=== PATIENT | female | born 1990 | race American Indian/Alaskan Native ===

== ENCOUNTER 2017-03-21 18:29 | Emergency (ER) | payer SELFPAY ==
[2017-03-21 18:53] VITALS: BP 129/79
--- NOTE | 2017-03-21 19:02 | Emergency Department Report ---
Chief Complaint: Psych Stated Complaint: DEPRESSED /MIGRAINES/ SUICIDAL THOUGHTS Time Seen by Provider: 03/21/17 18:55 - HPI History of Present Illness: depressed si jump out of car voices tell her to run or jump from car no hx of same etoh cig denies drugs lmp 3 w ago no fam hx psyciatric illness no meds - Exam Vital Signs: Vital Signs 03/21/17 18:49 Temperature 97.9 F Pulse Rate 89 Respiratory 18 Rate Blood Pressure 129/79 O2 Sat by Pulse 100 Oximetry MSE screening note: Focused history and physical exam performed. Due to findings the following was ordered: ED Disposition for MSE Condition: Stable
[2017-03-21 19:27] LABS: Basophils % (Auto) 0.6 % (0.0-1.8); Eosinophils % (Auto) 3.3 % (0.0-4.3); Hematocrit 39.7 % (30.3-42.9); Hemoglobin 13.4 gm/dl (10.1-14.3); Mean Corpuscular HGB Conc 34 % (30-34); Mean Corpuscular Hemoglobin 32 pg (28-32); Mean Corpuscular Volume 95 fl (79-97); Platelet Count 281 K/mm3 (140-440); Red Blood Count 4.17 M/mm3 (3.65-5.03); Red Cell Distribution Width 13.3 % (13.2-15.2); White Blood Count 8.1 K/mm3 (4.5-11.0)
[2017-03-21 19:48] LABS: Alanine Aminotransferase 10 units/L (7-56); Albumin 4.2 g/dL (3.9-5); Albumin/Globulin Ratio 1.6 %; Alkaline Phosphatase 84 units/L (35-129); Anion Gap 17 mmol/L; Blood Urea Nitrogen 9 mg/dL (7-17); Calcium 9.5 mg/dL (8.4-10.2); Carbon Dioxide 28 mmol/L (22-30); Chloride 99.6 mmol/L (98-107); Glucose 97 mg/dL (65-100); Potassium 4.5 mmol/L (3.6-5.0); Sodium 140 mmol/L (137-145); Total Protein 6.8 g/dL (6.3-8.2)
--- NOTE | 2017-03-25 00:54 | ED Elopement Review ---
ED Pt Elopement review - Results review Lab results: Laboratory Tests 03/21/17 03/21/17 03/21/17 19:12 19:12 19:12 WBC 8.1 RBC 4.17 Hgb 13.4 Hct 39.7 MCV 95 MCH 32 MCHC 34 RDW 13.3 Plt Count 281 Lymph % (Auto) 30.7 [place] % (Auto) 4.9 Eos % (Auto) 3.3 Baso % (Auto) 0.6 Lymph # 2.5 [place] # 0.4 Eos # 0.3 Baso # 0.0 Seg Neutrophils % 60.5 Seg Neutrophils # 4.9 Sodium 140 Potassium 4.5 Chloride 99.6 Carbon Dioxide 28 Anion Gap 17 BUN 9 Creatinine 0.6 L Estimated GFR > 60 BUN/Creatinine Ratio 15.00 Glucose 97 Calcium 9.5 Total Bilirubin 0.30 AST 17 ALT 10 Alkaline Phosphatase 84 Total Protein 6.8 Albumin 4.2 Albumin/Globulin Ratio 1.6 TSH Salicylates Acetaminophen < 15.0 Plasma/Serum Alcohol 03/21/17 03/21/17 03/21/17 19:12 19:19 19:20 WBC RBC Hgb Hct MCV MCH MCHC RDW Plt Count Lymph % (Auto) [place] % (Auto) Eos % (Auto) Baso % (Auto) Lymph # [place] # Eos # Baso # Seg Neutrophils % Seg Neutrophils # Sodium Potassium Chloride Carbon Dioxide Anion Gap BUN Creatinine Estimated GFR BUN/Creatinine Ratio Glucose Calcium Total Bilirubin AST ALT Alkaline Phosphatase Total Protein Albumin Albumin/Globulin Ratio TSH 0.866 Salicylates < 0.3 L Acetaminophen Plasma/Serum Alcohol < 0.01 - Call Back decision Pt Call Back Decision: Call pt to return to ED [facility] (charge nurse Chan form the patient with suicidal ideation who has eloped. Charge nurse instructed to notify police)
== END 2017-03-22 00:40 | disposition left against medical advice (07) ==
LOC: ED 18:29
DX: F32.9 Major depressive disorder, single episode, unspecified (principal); Z53.21 Procedure and treatment not carried out due to patient leaving prior to being seen by health care provider
CPT/HCPCS: 36415; 80053; 84443; 85025; G0480; 80320

== ENCOUNTER 2017-04-26 13:03 | Emergency (ER) | payer SELFPAY ==
[2017-04-26 13:09] VITALS: BP 157/92
[2017-04-26] MEDS ORDERED: DUONEB 0.5 MG-3 MG/3 ML SOLN IH ONE ×2 (13:09→15:28)
[2017-04-26 13:37] LABS: Hematocrit 41.1 % (30.3-42.9); Hemoglobin 13.9 gm/dl (10.1-14.3); Mean Corpuscular HGB Conc 34 % (30-34); Mean Corpuscular Hemoglobin 31 pg (28-32); Mean Corpuscular Volume 93 fl (79-97); Platelet Count 297 K/mm3 (140-440); Red Blood Count 4.42 M/mm3 (3.65-5.03); Red Cell Distribution Width 13.3 % (13.2-15.2); White Blood Count 10.3 K/mm3 (4.5-11.0)
[2017-04-26 13:47] LABS: Anion Gap 16 mmol/L; Blood Urea Nitrogen 5 mg/dL (7-17); Calcium 9.2 mg/dL (8.4-10.2); Carbon Dioxide 26 mmol/L (22-30); Glucose 96 mg/dL (65-100); Potassium 4.2 mmol/L (3.6-5.0); Sodium 139 mmol/L (137-145)
[2017-04-26 14:50] LABS: Bilirubin,Urine NEG (Negative); Blood,Urine NEG (Negative); Ketones,Urine NEG (Negative); Leukocyte Esterase,Urine TR (Negative); Mucus,Urine FEW /HPF; Nitrite,Urine NEG (Negative); Protein,Urine <15 mg/dL mg/dL (Negative); Urobilinogen,Urine < 2.0 mg/dL (<2.0)
[2017-04-26] MEDS ORDERED: DECADRON IV ONE (15:05)
[2017-04-26] MEDS ORDERED: DECADRON IM ONE (15:07)
--- NOTE | 2017-04-26 15:13 | Emergency Department Report ---
ED Asthma HPI - General Chief Complaint: Adult Asthma Stated Complaint: SOB,CHEST PAIN Source: patient Mode of arrival: Ambulatory Limitations: No Limitations - History of Present Illness Initial Comments: 26 year old presents to ED with productive cough, wheezing, SOB and chest pressure x2-3 days. patient states she has history of asthma and is out of her inhaler. Patient denies recent travel, recent surgeries, use of OCP's, hx of blood clots. patient is neurologically intact and in no acute distress. MD Complaint: "asthma attack", shortness of breath, wheezing -: Gradual Asthma History: history of frequent attac Severity: mild Context: recent URI, ran out of meds, medication non-compliance Associated Symptoms: productive cough. denies: fever, hemoptysis, leg edema, syncope - Related Data Previous Rx's Medication Instructions Recorded Last Taken Type ALBUTEROL Inhaler [ProAir HFA 1 puff IH QID PRN #1 inha 04/26/17 Unknown Rx Inhaler] Azithromycin [Zithromax] 250 mg PO DAILY #1 pack 04/26/17 Unknown Rx guaiFENesin DM [Robitussin Dm] 5 ml PO Q6HR #120 ml 04/26/17 Unknown Rx Allergies Allergy/AdvReac Type Severity Reaction Status Date / Time No Known Allergies Allergy Unverified 03/21/17 18:49 ED Review of Systems ROS: Stated complaint: SOB,CHEST PAIN Other details as noted in HPI Constitutional: denies: chills, fever Eyes: denies: eye pain, eye discharge, vision change ENT: denies: ear pain, throat pain Respiratory: cough (green mucus), SOB with exertion, SOB at rest, wheezing Cardiovascular: chest pain (chest pressure/tightness). denies: palpitations, edema, syncope Endocrine: no symptoms reported Gastrointestinal: denies: abdominal pain, nausea, diarrhea Genitourinary: denies: urgency, dysuria, discharge Musculoskeletal: denies: back pain, joint swelling, arthralgia Skin: denies: rash, lesions Neurological: denies: headache, weakness, paresthesias Psychiatric: denies: anxiety, depression Hematological/Lymphatic: denies: easy bleeding, easy bruising ED Past Medical Hx - Past Medical History Hx Hypertension: Yes Hx Asthma: Yes - Social History Smoking Status: Current Every Day Smoker Substance Use Type: Alcohol - Medications Home Medications: Home Medications Medication Instructions Recorded Confirmed Last Taken Type ALBUTEROL Inhaler [ProAir HFA 1 puff IH QID PRN #1 inha 04/26/17 Unknown Rx Inhaler] Azithromycin [Zithromax] 250 mg PO DAILY #1 pack 04/26/17 Unknown Rx guaiFENesin DM [Robitussin Dm] 5 ml PO Q6HR #120 ml 04/26/17 Unknown Rx ED Physical Exam - General Limitations: No Limitations General appearance: alert, in no apparent distress - Head Head exam: Present: atraumatic, normocephalic - Eye Eye exam: Present: normal appearance - ENT ENT exam: Present: normal exam, mucous membranes moist, TM's normal bilaterally - Neck Neck exam: Present: normal inspection, full ROM. Absent: tenderness - Respiratory Respiratory exam: Present: normal lung sounds bilaterally, wheezes (right lower lung wheezes). Absent: respiratory distress, stridor - Cardiovascular Cardiovascular Exam: Present: regular rate, normal rhythm. Absent: systolic murmur, diastolic murmur, rubs, gallop - GI/Abdominal GI/Abdominal exam: Present: soft, normal bowel sounds. Absent: distended, tenderness, guarding - Extremities Exam Extremities exam: Present: normal inspection, full ROM - Back Exam Back exam: Present: normal inspection, full ROM - Neurological Exam Neurological exam: Present: alert, oriented X3, normal gait - Psychiatric Psychiatric exam: Present: normal affect, normal mood - Skin Skin exam: Present: warm, dry, intact, normal color. Absent: rash ED Course Vital Signs 04/26/17 04/26/17 04/26/17 13:05 13:37 16:28 Temperature 98.3 F Pulse Rate 103 H 106 H Respiratory 20 18 20 Rate Blood Pressure 157/92 O2 Sat by Pulse 100 98 Oximetry 04/26/17 04/26/17 16:58 17:43 Temperature Pulse Rate 92 H Respiratory 18 18 Rate Blood Pressure O2 Sat by Pulse Oximetry ED Medical Decision Making - Lab Data Result diagrams: 04/26/17 13:17 04/26/17 13:17 Lab Results 04/26/17 04/26/17 04/26/17 Range/Units 13:17 13:17 14:37 WBC 10.3 (4.5-11.0) K/mm3 RBC 4.42 (3.65-5.03) M/mm3 Hgb 13.9 (10.1-14.3) gm/dl Hct 41.1 (30.3-42.9) % MCV 93 (79-97) fl MCH 31 (28-32) pg MCHC 34 (30-34) % RDW 13.3 (13.2-15.2) % Plt Count 297 (140-440) K/mm3 Sodium 139 (137-145) mmol/L Potassium 4.2 (3.6-5.0) mmol/L Chloride 101.0 (98-107) mmol/L Carbon Dioxide 26 (22-30) mmol/L Anion Gap 16 mmol/L BUN 5 L (7-17) mg/dL Creatinine 0.5 L (0.7-1.2) mg/dL Estimated GFR > 60 ml/min BUN/Creatinine Ratio 10.00 % Glucose 96 (65-100) mg/dL Calcium 9.2 (8.4-10.2) mg/dL Urine Color Yellow (Yellow) Urine Turbidity Clear (Clear) Urine pH 6.0 (5.0-7.0) Ur Specific [place] 1.020 (1.003-1.030) Urine Protein <15 mg/dl (Negative) mg/dL Urine Glucose (UA) Neg (Negative) mg/dL Urine Ketones Neg (Negative) mg/dL Urine Blood Neg (Negative) Urine Nitrite Neg (Negative) Urine Bilirubin Neg (Negative) Urine Urobilinogen < 2.0 (<2.0) mg/dL Ur Leukocyte Esterase Tr (Negative) Urine WBC (Auto) 2.0 (0.0-6.0) /HPF Urine RBC (Auto) 4.0 (0.0-6.0) /HPF U Epithel Cells (Auto) 2.0 (0-13.0) /HPF Urine Mucus Few /HPF Urine HCG, Qual Negative (Negative) - Radiology Data Radiology results: report reviewed XR chest no acute cardiopulmonary findings - Medical Decision Making 26 year old female presents to ED with asthma exacerbation. patient has had 2 breathing treatments, IM steroids, cough syrup, IM toradol and feels better. patient is in no acute distress. patient placed on PO antibiotics for 5 days, cough syrup and albuterol inhaler. patient is stable, neurologically intact and in no acute distress. patient understands to return to ED if symptoms worsen or new symptoms develop. Critical care attestation.: If time is entered above; I have spent that time in minutes in the direct care of this critically ill patient, excluding procedure time. ED Disposition Clinical Impression: Bronchitis with asthma, acute Disposition: DC-01 TO HOME OR SELFCARE Is pt being admited?: No Does the pt Need Aspirin: No Condition: Stable Instructions: Chronic Bronchitis (ED) Prescriptions: ALBUTEROL Inhaler [ProAir HFA Inhaler] 1 puff IH QID PRN #1 inha PRN Reason: Shortness Of Breath Azithromycin [Zithromax] 250 mg PO DAILY #1 pack guaiFENesin DM [Robitussin Dm] 5 ml PO Q6HR #120 ml Referrals: PRIMARY CARE, [Primary Care Provider] - 3-5 Days Forms: Work/School Release Form(ED)
--- NOTE | 2017-04-26 15:31 | XRay Report ---
Chest 2 views: History: Wheezing, productive cough. Findings: Normal cardiomediastinal silhouette. Trachea is midline. No consolidation, pneumothorax or pleural effusion. Impression: No acute cardiopulmonary findings.
[2017-04-26] MEDS: PHENERGAN/CODEINE 6.25-10 MG/5ML PO ONE ×2 (15:37→16:28)
[2017-04-26] MEDS ORDERED: TORADOL IM ONE (16:48)
== END 2017-04-26 17:47 | disposition home or self-care (01) ==
LOC: ED 13:03
DX: J20.9 Acute bronchitis, unspecified (principal); J45.909 Unspecified asthma, uncomplicated; I10 Essential (primary) hypertension; F17.200 Nicotine dependence, unspecified, uncomplicated
CPT/HCPCS: 36415; 71020; 80048; 81001; 81025; 85027; 93005; 93010; 94640; 96372; 99284; J1100; J1885

== ENCOUNTER 2018-01-09 12:22 | Emergency (ER) | payer SELFPAY ==
[2018-01-09 13:28] LABS: Basophils # (Auto) 0.1 K/mm3 (0.0-0.1); Basophils % (Auto) 1.6 % (0.0-1.8); Eosinophils # (Auto) 0.2 K/mm3 (0.0-0.4); Eosinophils % (Auto) 2.8 % (0.0-4.3); Hematocrit 41.8 % (30.3-42.9); Hemoglobin 14.2 gm/dl (10.1-14.3); Lymphocytes # (Auto) 1.8 K/mm3 (1.2-5.4); Lymphocytes % (Auto) 21.1 % (13.4-35.0); Mean Corpuscular HGB Conc 34 % (30-34); Mean Corpuscular Hemoglobin 34 pg (28-32); Mean Corpuscular Volume 98 fl (79-97); Monocytes # (Auto) 0.4 K/mm3 (0.0-0.8); Monocytes % (Auto) 4.2 % (0.0-7.3); Platelet Count 250 K/mm3 (140-440); Red Blood Count 4.25 M/mm3 (3.65-5.03); Red Cell Distribution Width 13.4 % (13.2-15.2)
[2018-01-09 13:37] LABS: BUN/Creatinine Ratio 14; Blood Urea Nitrogen 7 mg/dL (7-17); Calcium 9.4 mg/dL (8.4-10.2); Hemolysis Index 6
[2018-01-09] MEDS ORDERED: NORCO 7.5/325 PO ONE (15:19)
[2018-01-09] MEDS ORDERED: MOTRIN PO ONE (15:19)
--- NOTE | 2018-01-09 15:23 | Emergency Department Report ---
Blank Doc - Documentation Documentation: Patient is a 27-year-old Somali female who is presenting with chest pain. Patient states that she's got pain in the chest and feels like a pressure sensation with shortness of breath. Patient states it hurts to take a deep breath. Patient states she has been coughing productive of yellow sputum with wheeze. She doesn't history of asthma. Patient denies any fevers chills nausea vomiting at this time. Patient also states she does have a mild sore throat. Patient because of her age a less likely that she has a PE chest x-ray was ordered patient most likely has an acute bronchitis secondary to her smoking causing her pleuritic chest discomfort and cough.
--- NOTE | 2018-01-09 16:54 | Emergency Department Report ---
Minor Respiratory - HPI Chief Complaint: Chest Pain Stated Complaint: DIFFICULTY BREATHING Time Seen by Provider: 01/09/18 15:08 Minor Respiratory: Yes Sore Throat, Yes Able to Tolerate Fluids, Yes Cough, Yes Chest Pain, Yes Shortness of Breath, No Rhinorrhea, No Ear Pain, No Sick Contacts, No Hemoptysis, No Fever Other History: Patient is a 27-year-old Russian female who is presenting with chest pain. Patient states that she's got pain in the chest and feels like a pressure sensation with shortness of breath. Patient states it hurts to take a deep breath. Patient states she has been coughing productive of yellow sputum with wheeze. She doesn't history of asthma. Patient denies any fevers chills nausea vomiting at this time. Patient also states she does have a mild sore throat. Patient because of her age a less likely that she has a PE chest x-ray was ordered patient most likely has an acute bronchitis secondary to her smoking causing her pleuritic chest discomfort and cough. ED Review of Systems ROS: Stated complaint: DIFFICULTY BREATHING Other details as noted in HPI Comment: All other systems reviewed and negative ED Past Medical Hx - Past Medical History Hx Hypertension: Yes Hx Asthma: Yes - Social History Smoking Status: Current Every Day Smoker - Medications Home Medications: Home Medications Medication Instructions Recorded Confirmed Last Taken Type guaiFENesin DM [Robitussin Dm] 5 ml PO Q6HR #120 ml 04/26/17 Unknown Rx ALBUTEROL Inhaler [ProAir HFA 1 puff IH QID PRN #1 inha 01/09/18 Unknown Rx Inhaler] Azithromycin [Zithromax Z-MAXIM] 250 mg PO DAILY #1 pack 01/09/18 Unknown Rx HYDROcodone/APAP 5-325 [[place] 1 each PO Q6HR PRN #12 tablet 01/09/18 Unknown Rx 5/325] predniSONE [Deltasone] 20 mg PO QDAY #5 tab 01/09/18 Unknown Rx Minor Respiratory Exam - Exam General: Vital signs noted. No distress. Alert and acting appropriately. HEENT: Yes Moist Mucous Membranes, No Pharyngeal Erythema, No Pharyngeal Exudates, No Rhinorrhea, No Conjuctival Injection, No Frontal Tenderness, No Maxillary Tenderness Ear: Neither TM Bulge, Neither TM Erythema, Neither EAC Pain, Neither EAC Discharge Neck: Yes Supple, No Adenopathy Lungs: Yes Good Air Exchange, No Wheezes, No [place], No Stridor, No Cough, No Labored Respirations, No Retractions, No Use of Accessory Muscles, No Other Abnormal Lung Sounds Heart: Yes Regular, No Murmur Abdomen: Yes Normal Bowel Sounds, No Tenderness, No Peritoneal Signs Skin: No Rash, No Edema Neurologic: Alert and oriented, no deficits. Musculoskeletal: Unremarkable. ED Course Vital Signs 01/09/18 12:38 Temperature 98 F Pulse Rate 95 H Respiratory 16 Rate Blood Pressure 123/90 O2 Sat by Pulse 100 Oximetry ED Medical Decision Making - Lab Data Result diagrams: 01/09/18 13:03 01/09/18 13:03 - EKG Data -: EKG Interpreted by Az - EKG Data Interpretation: other (EKG shows sinus rhythm rate of 77 normal axis normal intervals no ST segment elevations or depressions time interpretation is 1255. His normal EKG) Critical care attestation.: If time is entered above; I have spent that time in minutes in the direct care of this critically ill patient, excluding procedure time. ED Disposition Clinical Impression: Acute bronchitis Qualifiers: Bronchitis organism: unspecified organism Qualified Code(s): J20.9 - Acute bronchitis, unspecified Disposition: DC-01 TO HOME OR SELFCARE Is pt being admited?: No Does the pt Need Aspirin: No Condition: Stable Instructions: Acute Bronchitis (ED) Prescriptions: ALBUTEROL Inhaler [ProAir HFA Inhaler] 1 puff IH QID PRN #1 inha PRN Reason: Shortness Of Breath Azithromycin [Zithromax Z-MAXIM] 250 mg PO DAILY #1 pack HYDROcodone/APAP 5-325 [[place] 5/325] 1 each PO Q6HR PRN #12 tablet PRN Reason: Pain predniSONE [Deltasone] 20 mg PO QDAY #5 tab Referrals: [facility] [Outside] - 3-5 Days
--- NOTE | 2018-01-09 17:24 | XRay Report ---
FINAL REPORT PROCEDURE: Chest. TECHNIQUE: PA and lateral views. HISTORY: Cough. COMPARISON: No prior studies are available for comparison. FINDINGS: The heart and mediastinum appear normal. The lungs are clear and well expanded. There are no pleural effusions. The soft tissues and regional skeleton are unremarkable. IMPRESSION: Normal study.
[2018-01-09 17:46] VITALS: BP 139/90
== END 2018-01-09 17:50 | disposition home or self-care (01) ==
LOC: ED 12:22
DX: J20.9 Acute bronchitis, unspecified (principal); I10 Essential (primary) hypertension; J45.909 Unspecified asthma, uncomplicated; F17.200 Nicotine dependence, unspecified, uncomplicated
CPT/HCPCS: 36415; 71046; 80048; 84484; 84703; 85025; 93005; 93010; 99283

== ENCOUNTER 2018-01-29 08:19 | Emergency (ER) | payer SELFPAY ==
[2018-01-29 09:48] LABS: Bilirubin,Urine NEG (Negative); Blood,Urine LG (Negative); Color,Urine Red (Yellow); Mucus,Urine FEW /HPF; Urobilinogen,Urine < 2.0 mg/dL (<2.0)
--- NOTE | 2018-01-29 09:48 | Emergency Department Report ---
ED Female HPI - General Chief complaint: Vaginal Bleeding Stated complaint: VAGINAL BLEEDING Time Seen by Provider: 01/29/18 09:04 Source: patient Mode of arrival: Ambulatory Limitations: No Limitations - History of Present Illness Initial comments: Ms Aguirre is a 27 yo oh presents with severe heavy vaginal bleeding. She bled through several sets of clothing. Bleeding began last night. She has a history of irregular vaginal bleeding. She normally has light menstrual cycle every other month. However, she has never had severe heavy vaginal bleeding. She has a history of miscarriage requiring D&C. She has moderately severe pelvic cramping. Symptoms occurred gradually yesterday. Denies headache. Denies chest pain. She mushrooms of breath. She recently completed a course of azithromycin and prednisone for recent asthma attack. MD Complaint: vaginal bleeding -: days(s) (1) Severity: moderate Quality: cramping Consistency: constant Improves with: none Worsens with: none Are you Now?: No Associated Symptoms: vaginal bleeding. denies: nausea/vomiting - Related Data Sexually active: Yes : 2 Para: 1 A: 1 Previous Rx's Medication Instructions Recorded Last Taken Type guaiFENesin DM [Robitussin Dm] 5 ml PO Q6HR #120 ml 04/26/17 Unknown Rx ALBUTEROL Inhaler [ProAir HFA 1 puff IH QID PRN #1 inha 01/09/18 Unknown Rx Inhaler] Azithromycin [Zithromax Z-MAXIM] 250 mg PO DAILY #1 pack 01/09/18 Unknown Rx HYDROcodone/APAP 5-325 [[place] 1 each PO Q6HR PRN #12 tablet 01/09/18 Unknown Rx 5/325] predniSONE [Deltasone] 20 mg PO QDAY #5 tab 01/09/18 Unknown Rx Ibuprofen 800 mg PO QID PRN #15 tablet 01/29/18 Unknown Rx Allergies Allergy/AdvReac Type Severity Reaction Status Date / Time No Known Allergies Allergy Unverified 03/21/17 18:49 ED Review of Systems ROS: Stated complaint: VAGINAL BLEEDING Other details as noted in HPI Comment: All other systems reviewed and negative Respiratory: denies: cough Cardiovascular: denies: chest pain ED Past Medical Hx - Past Medical History Hx Hypertension: Yes ( WITH SON) Hx Asthma: Yes - Surgical History Past Surgical History?: No - Social History Smoking Status: Current Every Day Smoker Substance Use Type: Alcohol, Marijuana - Medications Home Medications: Home Medications Medication Instructions Recorded Confirmed Last Taken Type guaiFENesin DM [Robitussin Dm] 5 ml PO Q6HR #120 ml 04/26/17 Unknown Rx ALBUTEROL Inhaler [ProAir HFA 1 puff IH QID PRN #1 inha 01/09/18 Unknown Rx Inhaler] Azithromycin [Zithromax Z-MAXIM] 250 mg PO DAILY #1 pack 01/09/18 Unknown Rx HYDROcodone/APAP 5-325 [[place] 1 each PO Q6HR PRN #12 tablet 01/09/18 Unknown Rx 5/325] predniSONE [Deltasone] 20 mg PO QDAY #5 tab 01/09/18 Unknown Rx Ibuprofen 800 mg PO QID PRN #15 tablet 01/29/18 Unknown Rx ED Physical Exam - General Limitations: No Limitations General appearance: alert, in no apparent distress - Head Head exam: Present: atraumatic, normocephalic - Eye Eye exam: Present: normal appearance - ENT ENT exam: Present: normal orophraynx, mucous membranes moist - Neck Neck exam: Present: normal inspection. Absent: meningismus - Respiratory Respiratory exam: Present: normal lung sounds bilaterally. Absent: respiratory distress, wheezes, rales, rhonchi - Cardiovascular Cardiovascular Exam: Present: regular rate, normal rhythm. Absent: systolic murmur, diastolic murmur, rubs, gallop - GI/Abdominal GI/Abdominal exam: Present: soft, normal bowel sounds - Extremities Exam Extremities exam: Present: normal inspection - Back Exam Back exam: Present: normal inspection - Neurological Exam Neurological exam: Present: alert, oriented X3 - Psychiatric Psychiatric exam: Present: normal affect, normal mood. Absent: depressed, agitated - Skin Skin exam: Present: warm, dry, intact, normal color. Absent: rash ED Course Vital Signs 01/29/18 01/29/18 01/29/18 08:47 09:17 09:30 Temperature 98.4 F Pulse Rate 83 Respiratory 20 Rate Blood Pressure 129/89 139/89 139/89 O2 Sat by Pulse 100 99 99 Oximetry 01/29/18 01/29/18 10:00 10:30 Temperature Pulse Rate Respiratory Rate Blood Pressure 129/85 123/75 O2 Sat by Pulse 98 99 Oximetry ED Medical Decision Making - Lab Data Result diagrams: 01/29/18 09:27 01/29/18 09:27 Laboratory Results - last 24 hr 01/29/18 01/29/18 01/29/18 09:07 09:27 09:27 WBC 6.1 RBC 3.87 Hgb 12.7 Hct 38.9 MCV 100 H MCH 33 H MCHC 33 RDW 13.3 Plt Count 286 Lymph % (Auto) 34.1 [place] % (Auto) 8.8 H Eos % (Auto) 3.3 Baso % (Auto) 0.6 Lymph # 2.1 [place] # 0.5 Eos # 0.2 Baso # 0.0 Seg Neutrophils % 53.2 Seg Neutrophils # 3.3 Sodium Potassium Chloride Carbon Dioxide Anion Gap BUN Creatinine Estimated GFR BUN/Creatinine Ratio Glucose Calcium Total Bilirubin AST ALT Alkaline Phosphatase Total Protein Albumin Albumin/Globulin Ratio HCG, Quant < 2 Urine Color Red Urine Turbidity Clear Urine pH 6.0 Ur Specific [place] 1.019 Urine Protein 100 mg/dl Urine Glucose (UA) 50 Urine Ketones Tr Urine Blood Lg Urine Nitrite Neg Urine Bilirubin Neg Urine Urobilinogen < 2.0 Ur Leukocyte Esterase Tr Urine WBC (Auto) 37.0 H Urine RBC (Auto) > 182.0 U Epithel Cells (Auto) 2.0 Urine Mucus Few 01/29/18 09:27 WBC RBC Hgb Hct MCV MCH MCHC RDW Plt Count Lymph % (Auto) [place] % (Auto) Eos % (Auto) Baso % (Auto) Lymph # [place] # Eos # Baso # Seg Neutrophils % Seg Neutrophils # Sodium 139 Potassium 4.1 Chloride 105.1 Carbon Dioxide 24 Anion Gap 14 BUN 5 L Creatinine 0.4 L Estimated GFR > 60 BUN/Creatinine Ratio 13 Glucose 98 Calcium 8.6 Total Bilirubin 0.20 AST 18 ALT 11 Alkaline Phosphatase 69 Total Protein 6.6 Albumin 4.1 Albumin/Globulin Ratio 1.6 HCG, Quant Urine Color Urine Turbidity Urine pH Ur Specific [place] Urine Protein Urine Glucose (UA) Urine Ketones Urine Blood Urine Nitrite Urine Bilirubin Urine Urobilinogen Ur Leukocyte Esterase Urine WBC (Auto) Urine RBC (Auto) U Epithel Cells (Auto) Urine Mucus - Medical Decision Making Ms. Graham presents with dysmenorrhea with history of dysfunctional uterine bleeding. Received IV Toradol for pain control. Prescription for ibuprofen. Discharged home in stable condition. I recommended foil cutter consult for DUB. Critical care attestation.: If time is entered above; I have spent that time in minutes in the direct care of this critically ill patient, excluding procedure time. ED Disposition Clinical Impression: Dysmenorrhea, DUB (dysfunctional uterine bleeding) Disposition: TO HOME OR SELFCARE Is pt being admited?: No Does the pt Need Aspirin: No Condition: Stable Instructions: Dysmenorrhea (ED), Dysfunctional Uterine Bleeding (ED) Prescriptions: Ibuprofen 800 mg PO QID PRN #15 tablet PRN Reason: Pain Referrals: ANDIE PELAEZ MD [Staff Physician] - as needed Forms: Work/School Release Form(ED) Time of Disposition: 11:05
[2018-01-29 09:53] LABS: RBC,Urine > 182.0 /HPF (0.0-6.0)
[2018-01-29 10:03] LABS: Alanine Aminotransferase 11 units/L (7-56); Albumin 4.1 g/dL (3.9-5); BUN/Creatinine Ratio 13; Blood Urea Nitrogen 5 mg/dL (7-17); Calcium 8.6 mg/dL (8.4-10.2); Hemolysis Index 14
[2018-01-29 10:17] LABS: Basophils % (Auto) 0.6 % (0.0-1.8); Eosinophils # (Auto) 0.2 K/mm3 (0.0-0.4); Eosinophils % (Auto) 3.3 % (0.0-4.3); Hematocrit 38.9 % (30.3-42.9); Hemoglobin 12.7 gm/dl (10.1-14.3); Lymphocytes # (Auto) 2.1 K/mm3 (1.2-5.4); Lymphocytes % (Auto) 34.1 % (13.4-35.0); Mean Corpuscular HGB Conc 33 % (30-34); Mean Corpuscular Hemoglobin 33 pg (28-32); Mean Corpuscular Volume 100 fl (79-97); Monocytes # (Auto) 0.5 K/mm3 (0.0-0.8); Monocytes % (Auto) 8.8 % (0.0-7.3); Platelet Count 286 K/mm3 (140-440); Red Blood Count 3.87 M/mm3 (3.65-5.03); Red Cell Distribution Width 13.3 % (13.2-15.2)
[2018-01-29] MEDS ORDERED: NACL 0.9% 1000 ML 1,000 ML IV ONE (10:45)
[2018-01-29] MEDS ORDERED: TORADOL IV ONE (11:02)
[2018-01-29 12:22] VITALS: BP 132/81
== END 2018-01-29 12:22 | disposition home or self-care (01) ==
LOC: ED 08:19
DX: N93.8 Other specified abnormal uterine and vaginal bleeding (principal); F17.200 Nicotine dependence, unspecified, uncomplicated; F12.10 Cannabis abuse, uncomplicated; J45.909 Unspecified asthma, uncomplicated; I10 Essential (primary) hypertension
CPT/HCPCS: 36415; 80053; 81001; 84702; 85025; 86850; 86900; 86901; 96361; 96374; 99283; J1885; J7030

== ENCOUNTER 2018-11-16 13:16 | Emergency (ER) | payer SELFPAY ==
[2018-11-16 13:29] VITALS: BP 153/106
[2018-11-16] MEDS ORDERED: ATIVAN PO ONE (14:16)
--- NOTE | 2018-11-16 14:24 | Emergency Department Report ---
ED Psych HPI - General Chief Complaint: Anxiety Stated Complaint: ANXIETY ATTACK Time Seen by Provider: 11/16/18 14:09 Source: patient Mode of arrival: Ambulatory - History of Present Illness Initial Comments: Ms. Aguirre is a 27 yo female who has been anxious and depressed since [place] time. She is estranged from her family in [place]. Was only able to briefly visit her son who lives with her father. She has been tearful with hyperventilation. She feels like she is going crazy. She did smoke marijuana today. She normally smokes 3 times per day. Denies chest pain. She had an anxiety attack "which came out of the blue". Complaint: feels depressed -: Gradual, month(s) (several) Associated Psychiatric Symptoms: depression, other (anxious) History of same: Yes Quality: constant Improves With: none Worsens With: drug use (marijuana) Context: recent drug abuse (marijuana 3 times a day), significant life stressor (does not get along with family, she misses her son who lives in [place]) - Related Data Previous Rx's Medication Instructions Recorded Last Taken Type guaiFENesin DM [Robitussin Dm] 5 ml PO Q6HR #120 ml 04/26/17 Unknown Rx ALBUTEROL Inhaler (OR & NICU) 1 puff IH QID PRN #1 inha 01/09/18 Unknown Rx [ProAir HFA Inhaler] Azithromycin [Zithromax Z-MAXIM] 250 mg PO DAILY #1 pack 01/09/18 Unknown Rx HYDROcodone/APAP 5-325 [[place] 1 each PO Q6HR PRN #12 tablet 01/09/18 Unknown Rx 5/325] predniSONE [Deltasone] 20 mg PO QDAY #5 tab 01/09/18 Unknown Rx Ibuprofen 800 mg PO QID PRN #15 tablet 01/29/18 Unknown Rx Allergies Allergy/AdvReac Type Severity Reaction Status Date / Time No Known Allergies Allergy Unverified 03/21/17 18:49 ED Review of Systems ROS: Stated complaint: ANXIETY ATTACK Other details as noted in HPI Comment: All other systems reviewed and negative Constitutional: denies: fever, malaise Respiratory: denies: cough Cardiovascular: denies: chest pain ED Past Medical Hx - Past Medical History Previous Medical History?: Yes Hx Hypertension: Yes ( WITH SON) Hx Asthma: Yes - Surgical History Past Surgical History?: No - Social History Smoking Status: Current Every Day Smoker Substance Use Type: Alcohol, Marijuana - Medications Home Medications: Home Medications Medication Instructions Recorded Confirmed Last Taken Type guaiFENesin DM [Robitussin Dm] 5 ml PO Q6HR #120 ml 04/26/17 Unknown Rx ALBUTEROL Inhaler (OR & NICU) 1 puff IH QID PRN #1 inha 01/09/18 Unknown Rx [ProAir HFA Inhaler] Azithromycin [Zithromax Z-MAXIM] 250 mg PO DAILY #1 pack 01/09/18 Unknown Rx HYDROcodone/APAP 5-325 [[place] 1 each PO Q6HR PRN #12 tablet 01/09/18 Unknown Rx 5/325] predniSONE [Deltasone] 20 mg PO QDAY #5 tab 01/09/18 Unknown Rx Ibuprofen 800 mg PO QID PRN #15 tablet 01/29/18 Unknown Rx ED Physical Exam - General Limitations: No Limitations - Other Other exam information: General: Well-appearing, no acute distress HEENT: Normocephalic atraumatic pupils equal round and reactive to light anicteric sclera Nose: no rhinorrhea Oropharynx: Clear mucous membranes no lesions Neck: supple, no meningismus Chest: Clear to auscultation bilaterally no rales rhonchi no wheezes Cardiac: Regular rate and rhythm no murmurs no rubs no gallops Abdomen: Soft nontender nondistended positive bowel sounds no guarding Extremities: No cyanosis no clubbing no edema Neuro: Moves all extremities 4, no gross deficits Psychiatric: Alert and oriented 4 normal affect normal judgment normal insight ED Course Vital Signs 11/16/18 13:25 Temperature 98.0 F Pulse Rate 108 H Respiratory 20 Rate Blood Pressure 153/106 O2 Sat by Pulse 100 Oximetry ED Medical Decision Making - EKG Data -: EKG Interpreted by Me EKG shows normal: sinus rhythm, axis, intervals, QRS complexes, ST-T waves Rate: normal - EKG Data Interpretation: normal EKG - Medical Decision Making During history taking, patient became very upset and tearful. She spoke about being depressed She felt as if things just weren't going well. She misses her son. She felt ostracized from her family during her [place] visit in [place] She was not allowed to have dinner with family. Her only social support with her fianc who travels nationwide for his job. She also has an aunt here in [place] whom she trusts. . At this time awaiting consultation by mental health knurling machine operator for recommendations and resources. She does not have indication for involuntary hold. She is medically clear for psychiatric care. Once assessed by our mental health team, she will be discharged home. I do feel that marijuana abuse is exacerbating her anxiety and depression. Critical care attestation.: If time is entered above; I have spent that time in minutes in the direct care of this critically ill patient, excluding procedure time. ED Disposition Clinical Impression: Anxiety, Depression, Marijuana abuse Disposition: DC-01 TO HOME OR SELFCARE Is pt being admited?: No Does the pt Need Aspirin: No Condition: Stable Instructions: Anxiety (ED), Depression (ED)
== END 2018-11-16 16:17 | disposition home or self-care (01) ==
LOC: ED 13:16
DX: F41.9 Anxiety disorder, unspecified (principal); F32.9 Major depressive disorder, single episode, unspecified; I10 Essential (primary) hypertension; F17.200 Nicotine dependence, unspecified, uncomplicated
CPT/HCPCS: 93005; 93010; 99282

== ENCOUNTER 2019-04-13 12:43 | Emergency (ER) | payer SELFPAY ==
--- NOTE | 2019-04-13 13:15 | Event Note ---
ED Screening Note ED Screening Note: pt states she was arguing with her boyfriend states she then began having a pressure in her head and chest states she was hyperventilating states she has had an anxiety attack before and was advised to be seen by a primary care doctor but did not follow up PMHx asthma no daily meds no allergies to meds LNMP three weeks ago +smoker +drinker no drug use
[2019-04-13] MEDS ORDERED: ATIVAN PO ONE (13:53)
--- NOTE | 2019-04-13 14:25 | Emergency Department Report ---
ED Chest Pain HPI - General Chief Complaint: Chest Pain Stated Complaint: CHEST PRESSURE/HEAD PRESSURE Time Seen by Provider: 04/13/19 13:12 Source: patient Mode of arrival: Ambulatory Limitations: No Limitations - History of Present Illness Initial Comments: Patient is a 28-year-old female who is presenting with headache and chest pain. Patient states that this occurred while having an argument earlier today. Patient feels tightness in the chest and just global pressure 90. Patient was crying uncontrollably earlier today. Patient states there was some shortness of breath. Patient said the symptoms before. Severity scale (0 -10): 6 - Related Data Previous Rx's Medication Instructions Recorded Last Taken Type guaiFENesin DM [Robitussin Dm] 5 ml PO Q6HR #120 ml 04/26/17 Unknown Rx ALBUTEROL Inhaler (OR & NICU) 1 puff IH QID PRN #1 inha 01/09/18 Unknown Rx [ProAir HFA Inhaler] Azithromycin [Zithromax Z-MAXIM] 250 mg PO DAILY #1 pack 01/09/18 Unknown Rx HYDROcodone/APAP 5-325 [[place] 1 each PO Q6HR PRN #12 tablet 01/09/18 Unknown Rx 5/325] predniSONE [Deltasone] 20 mg PO QDAY #5 tab 01/09/18 Unknown Rx Ibuprofen 800 mg PO QID PRN #15 tablet 01/29/18 Unknown Rx Allergies Allergy/AdvReac Type Severity Reaction Status Date / Time No Known Allergies Allergy Unverified 03/21/17 18:49 Heart Score - HEART Score History: Slightly suspicious EKG: Normal Age: < 45 Risk factors: No known risk factors Troponin: < normal limit HEART Score: 0 ED Review of Systems ROS: Stated complaint: CHEST PRESSURE/HEAD PRESSURE Other details as noted in HPI Comment: All other systems reviewed and negative ED Past Medical Hx - Past Medical History Hx Hypertension: Yes ( WITH SON) Hx Asthma: Yes - Social History Smoking Status: Current Every Day Smoker Substance Use Type: Alcohol - Medications Home Medications: Home Medications Medication Instructions Recorded Confirmed Last Taken Type guaiFENesin DM [Robitussin Dm] 5 ml PO Q6HR #120 ml 04/26/17 Unknown Rx ALBUTEROL Inhaler (OR & NICU) 1 puff IH QID PRN #1 inha 01/09/18 Unknown Rx [ProAir HFA Inhaler] Azithromycin [Zithromax Z-MAXIM] 250 mg PO DAILY #1 pack 01/09/18 Unknown Rx HYDROcodone/APAP 5-325 [[place] 1 each PO Q6HR PRN #12 tablet 01/09/18 Unknown Rx 5/325] predniSONE [Deltasone] 20 mg PO QDAY #5 tab 01/09/18 Unknown Rx Ibuprofen 800 mg PO QID PRN #15 tablet 01/29/18 Unknown Rx ED Physical Exam - General Limitations: No Limitations General appearance: alert, in no apparent distress - Head Head exam: Present: atraumatic, normocephalic - Eye Eye exam: Present: normal appearance - ENT ENT exam: Present: mucous membranes moist - Neck Neck exam: Present: normal inspection - Respiratory Respiratory exam: Present: normal lung sounds bilaterally. Absent: respiratory distress, wheezes, rales, rhonchi - Cardiovascular Cardiovascular Exam: Present: regular rate, normal rhythm. Absent: systolic murmur, diastolic murmur, rubs, gallop - GI/Abdominal GI/Abdominal exam: Present: soft, normal bowel sounds. Absent: distended, tenderness, guarding, rebound - Extremities Exam Extremities exam: Present: normal inspection - Back Exam Back exam: Present: normal inspection - Neurological Exam Neurological exam: Present: alert, oriented X3 - Psychiatric Psychiatric exam: Present: normal affect, normal mood - Skin Skin exam: Present: warm, dry, intact, normal color. Absent: rash ED Course Vital Signs 04/13/19 13:12 Temperature 98.4 F Pulse Rate 85 Respiratory 16 Rate Blood Pressure 140/91 [Left] O2 Sat by Pulse 100 Oximetry ED Medical Decision Making - EKG Data -: EKG Interpreted by Me EKG shows normal: sinus rhythm, axis, intervals, QRS complexes, ST-T waves Rate: normal - EKG Data Interpretation: normal EKG Critical care attestation.: If time is entered above; I have spent that time in minutes in the direct care of this critically ill patient, excluding procedure time. ED Disposition Clinical Impression: Anxiety, Atypical chest pain Disposition: DC-01 TO HOME OR SELFCARE Is pt being admited?: No Does the pt Need Aspirin: No Condition: Stable Instructions: Anxiety (ED) Referrals: JACIEL GERONIMO MD [Primary Care Provider] - 3-5 Days Time of Disposition: 14:25
[2019-04-13 16:14] VITALS: BP 122/70
== END 2019-04-13 15:00 | disposition home or self-care (01) ==
LOC: ED 12:43
DX: F41.9 Anxiety disorder, unspecified (principal); R07.89 Other chest pain; I10 Essential (primary) hypertension; J45.909 Unspecified asthma, uncomplicated; F17.200 Nicotine dependence, unspecified, uncomplicated; Z79.899 Other long term (current) drug therapy
CPT/HCPCS: 93005; 93010; 99282